=== PATIENT | male | born 1935 | race Two or more races ===

== ENCOUNTER 2017-04-05 18:33 | Inpatient (IN) | payer OTHER ==
[~2017-04-05] VITALS: Ht 172.7 cm; Wt 72.6 kg
[2017-04-13] MEDS ORDERED: INTESTINEX680 M1 PO (16:34)
[2017-04-13] MEDS ORDERED: LEVAQUIN750 MG PO (16:34)
[2017-04-13] MEDS ORDERED: XOPENEX HFA15 GM IH (16:35)
[2017-04-13] MEDS ORDERED: LIPITOR40 MG PO (16:36)
[2017-04-13] MEDS ORDERED: ADULT ASPIRIN81 MG PO (16:37)
[2017-04-13] MEDS ORDERED: FLOVENT DISKU100 MCG IH (16:38)
[2017-04-13] MEDS ORDERED: PROSCAR5 MG PO (16:38)
[2017-04-13] MEDS ORDERED: TOPROL XL50 M1 PO (16:39)
[2017-04-13] MEDS ORDERED: RESTORIL15 MG PO (16:39)
[2017-04-13] MEDS ORDERED: CARdura 2MG TABLET PO (16:39)
== END 2017-04-13 18:35 | disposition home or self-care (01) | DRG 193 ==
LOC: ER 18:33 → MEDJ 04-06 09:37 → SEC-K 04-06 09:37 → EDBD 04-06 09:37 → MEDJ 04-06 23:20 → SEC-K 04-06 23:31 → MEDJ 04-08 01:06
PROC: 3E0F7GC Introduction of Other Therapeutic Substance into Respiratory Tract, Via Natural or Artificial Opening (ICD-10-PCS; principal; 2017-04-06)
PROC: B246ZZZ Ultrasonography of Right and Left Heart (ICD-10-PCS; 2017-04-06)
PROC: 4A033R1 Measurement of Arterial Saturation, Peripheral, Percutaneous Approach (ICD-10-PCS; 2017-04-10)
DX: J11.00 Influenza due to unidentified influenza virus with unspecified type of pneumonia (principal); I50.33 Acute on chronic diastolic (congestive) heart failure; I13.0 Hypertensive heart and chronic kidney disease with heart failure and stage 1 through stage 4 chronic kidney disease, or unspecified chronic kidney disease; J90 Pleural effusion, not elsewhere classified; N17.8 Other acute kidney failure; N13.8 Other obstructive and reflux uropathy; N18.1 Chronic kidney disease, stage 1; R09.02 Hypoxemia; I25.10 Atherosclerotic heart disease of native coronary artery without angina pectoris; Z95.1 Presence of aortocoronary bypass graft; I34.0 Nonrheumatic mitral (valve) insufficiency; I27.29 Other secondary pulmonary hypertension; N40.1 Benign prostatic hyperplasia with lower urinary tract symptoms

== ENCOUNTER 2019-01-24 16:54 | Emergency (ER) | payer OTHER ==
[~2019-01-24] VITALS: Ht 180.3 cm; Wt 54.4 kg
[~2019-01-24 16:54] MED LIST: ADULT ASPIRIN81 MG PO; CARdura 2MG TABLET PO; FLOVENT DISKU100 MCG IH; INTESTINEX680 M1 PO; LEVAQUIN750 MG PO; LIPITOR40 MG PO; PROSCAR5 MG PO; RESTORIL15 MG PO; TOPROL XL50 M1 PO; XOPENEX HFA15 GM IH
[2019-01-24] MEDS ORDERED: LASIX20 MG (17:23)
[2019-01-24] MEDS ORDERED: IRON325 MG (17:23)
[2019-01-24] MEDS ORDERED: CAROSPIR25 MG/5 ML (17:24)
[2019-01-24] MEDS ORDERED: CARDURA XL8 MG (17:24)
== END 2019-01-25 12:15 | disposition home or self-care (01) ==
LOC: ER 16:54
DX: N13.8 Other obstructive and reflux uropathy (principal)

== ENCOUNTER 2019-03-10 17:43 | Emergency (ER) | payer OTHER ==
[~2019-03-10] VITALS: Ht 180.3 cm; Wt 56.7 kg
[~2019-03-10 17:43] MED LIST changes: +CARDURA XL8 MG; +CAROSPIR25 MG/5 ML; +IRON325 MG; +LASIX20 MG
[2019-03-10] MEDS ORDERED: TOPROL XL50 M1 (18:01)
[2019-03-10] MEDS ORDERED: HYDRALAZINE HCL50 MG (18:02)
== END 2019-03-10 21:09 | disposition home or self-care (01) ==
LOC: ER 17:43
DX: R33.8 Other retention of urine (principal)